=== PATIENT | male | born 1945 | race Caucasian/White ===

== ENCOUNTER → 2020-05-19 17:47 | Outpatient (CLI) | payer MEDICARE, SELFPAY ==
[2020-05-19 18:08] LABS: Basophils % 0.4 % (0.1-2.0); Eosinophils # 0.1 K/mm3 (0.0-0.4); Eosinophils % 2.1 % (0.1-12.0); Hemoglobin 16.2 g/dL (14.1-18.0); Lymphocytes # 1.7 K/mm3 (0.7-4.5); Lymphocytes % 25.1 % (10-50); Mean Corpuscular HGB Conc 33.8 g/dL (31.8-35.4); Mean Corpuscular Hemoglobin 28.9 pg (27.0-31.2); Mean Corpuscular Volume 85.7 fl (80-94); Mean Platelet Volume 7.5 fl (7.4-10.4); Monocytes # 0.5 K/mm3 (0.1-1.0); Monocytes % 8.2 % (1.7-9.3); Neutrophils # 4.3 K/mm3 (1.8-7.8); Neutrophils % 64.3 % (37.0-80.0); Platelet Count 274 K/mm3 (142-424); Red Cell Distribution Width 14.4 % (11.5-17.5); White Blood Count 6.7 K/mm3 (4.8-10.8)
[2020-05-19 18:14] LABS: Alanine Aminotransferase 45 U/L (12-78); Albumin Level 4.6 g/dl (3.5-5.0); Albumin/Globulin Ratio 1.5 (1.1-1.8); Alkaline Phosphatase 119 U/L (38-126); Anion Gap 15.3 mEq/L (5-15); Aspartate Amino Transferase 43 U/L (17-59); Bilirubin,Total 0.5 mg/dl (0.2-1.3); Blood Urea Nitrogen 19 mg/dl (9-20); Carbon Dioxide 28 mmol/L (22.0-30.0); Chloride 99 mmol/L (98-107); Estimated Glomerular Filt Rate 54 ml/min (>60); GFR (African American) 66 ML/MIN (>60); Glucose 256 mg/dl (74-100); Potassium 4.3 mmoL/L (3.5-5.1); Sodium 138 mmol/L (136-145); Total Protein,Serum 7.6 g/dl (6.3-8.2)
[2020-05-19 18:32] LABS: 25-OH Vitamin D, Total 53.2 ng/mL (30-100); Free T4 (Free Thyroxine) 1.66 ng/dl (0.78-2.19)
[2020-05-19 18:44] LABS: Erythrocyte Sedimentation Rate 10 mm/hr (0-20)
[2020-05-19 18:45] LABS: Thyroid Stimulating Hormone 3.31 uIU/mL (0.465-4.68)
== END ==
PROVIDERS: Visit Provider Emergency Medicine
DX: E66.9 Obesity, unspecified (principal); I10 Essential (primary) hypertension; E55.9 Vitamin D deficiency, unspecified; R42 Dizziness and giddiness
CPT/HCPCS: 80053; 80162; 82306; 84439; 84443; 85025; 85651

== ENCOUNTER → 2020-05-25 15:26 | Outpatient (CLI) | payer MEDICARE, SELFPAY ==
[2020-05-25 18:02] LABS: Hemoglobin A1C 7.5 % (4.0-6.0)
== END ==
PROVIDERS: Visit Provider Emergency Medicine
DX: I21.9 Acute myocardial infarction, unspecified (principal); E11.9 Type 2 diabetes mellitus without complications
CPT/HCPCS: 83036

== ENCOUNTER → 2020-06-01 13:02 | Outpatient (CLI) | payer MEDICARE, SELFPAY ==
[2020-06-01 14:45] LABS: Basophils % 0.6 % (0.1-2.0); Eosinophils # 0.3 K/mm3 (0.0-0.4); Eosinophils % 4.1 % (0.1-12.0); Hematocrit 47.6 % (42.0-52.0); Hemoglobin 15.6 g/dL (14.1-18.0); Lymphocytes # 1.7 K/mm3 (0.7-4.5); Lymphocytes % 28.3 % (10-50); Mean Corpuscular HGB Conc 32.9 g/dL (31.8-35.4); Mean Corpuscular Hemoglobin 28.8 pg (27.0-31.2); Mean Corpuscular Volume 87.6 fl (80-94); Mean Platelet Volume 7.7 fl (7.4-10.4); Monocytes # 0.5 K/mm3 (0.1-1.0); Monocytes % 7.9 % (1.7-9.3); Neutrophils # 3.6 K/mm3 (1.8-7.8); Neutrophils % 59.1 % (37.0-80.0); Platelet Count 268 K/mm3 (142-424); Red Blood Count 5.43 M/mm3 (4.60-6.20); Red Cell Distribution Width 14.5 % (11.5-17.5); White Blood Count 6.1 K/mm3 (4.8-10.8)
[2020-06-01 15:22] LABS: Chloride 100 mmol/L (98-107); Potassium 4.2 mmoL/L (3.5-5.1); Sodium 136 mmol/L (136-145)
[2020-06-01 15:25] LABS: Anion Gap 14.2 mEq/L (5-15); Blood Urea Nitrogen 18 mg/dl (9-20); Calcium 9.7 mg/dl (8.4-10.2); Carbon Dioxide 26 mmol/L (22.0-30.0); Estimated Glomerular Filt Rate 50 ml/min (>60); GFR (African American) 60 ML/MIN (>60); Glucose 318 mg/dl (74-100)
[2020-06-01 16:26] LABS: Coronavirus 19 IgG Antibody Negative (Negative); Coronavirus 19 IgM Antibody Negative (Negative)
== END ==
PROVIDERS: Visit Provider Internal Medicine
DX: Z01.818 Encounter for other preprocedural examination (principal); I25.10 Atherosclerotic heart disease of native coronary artery without angina pectoris; R06.02 Shortness of breath
CPT/HCPCS: 36415; 80048; 85025; 86328

== ENCOUNTER 2020-06-03 08:41 | Day surgery (SDC) | payer MEDICARE, SELFPAY ==
[2020-06-03] VITALS (11 sets, daily range): BP systolic 113–228; BP diastolic 49–86; PULSE 61–66; RESP 20; TEMP 36.6; O2SAT 94–98; BMI 28.6
--- NOTE | 2020-06-03 07:14 | IR_ITS ---
APPROVED REPORT Patient Location: Outpatient PROCEDURES Left heart catheterization Left ventriculogram Selective coronary angiogram Selective engagement of the left internal mammary artery Selective engagement of the saphenous vein skip graft involving the first and second obtuse marginal artery off the circumflex artery Selective engagement of the saphenous vein graft to the right coronary Bilateral selective renal angiography Metal stent deployment to the left renal artery INDICATION Coronary disease, History of coronary bypass surgery, Typical angina pectoris, Chronic renal failure creatinine 1.4, Renovascular hypertension, Renal artery stenosis Informed consent was obtained prior to the procedure. COMPLICATIONS NONE Estimated Blood Loss: LESS THAN 10 ML TECHNIQUE One percent lidocaine used to anesthetize the right groin. The right femoral artery was accessed via the Seldinger technique and a 5 Maltese sheath was placed in the right femoral artery. A JL 4, JR4 catheter were used to perform left heart catheterization, left ventriculogram selective coronary angiography as well as selective engagement of the 2 vein grafts and the left internal mammary artery. Because of patient's hypertension renal insufficiency and diffuse atherosclerosis it was decided to proceed with bilateral selective renal angiography. The JR4 catheter was used to intubate each renal artery and perform angiography. Following this therapeutic heparin was administered and the 5 Maltese sheath was exchanged for a 7 Maltese sheath. A short SCHILLING guide catheter was used to intubate the left renal artery and a BMW wire was placed distally. A 6 mm x 12 mm Herculink stent was deployed at 20 gerard reducing the stenosis. An additional 7 mm x 20 mm balloon was then deployed at 16 gerard to post dilate. At the end of the procedure excellent angiographic results were obtained with wide patency of the ostial renal artery. At the end of the procedure the apparatus was removed the groin was reprepped gloves were changed sheath was removed good hemostasis was achieved using Perclose device patient was transferred to the postop holding area in stable condition ANGIOGRAPHIC RESULTS The left main artery Has an ostial 90% stenosis in the distal 50% calcified stenosis The left anterior descending artery Is subtotally occluded proximally with long complex 99% stenosis. Competitive flow is identified from the left internal mammary artery The circumflex artery Is ostially occluded The right coronary artery Is proximally subtotally occluded The CASAREZ ventriculogram reveals Normal 65% The left ventricular end-diastolic pressure 20 mmHg The left internal mammary artery to the LAD is widely patent The saphenous vein graft to the first and second obtuse marginal artery is widely patent. Between the first and second obtuse marginal artery the saphenous vein graft has a 20 to 30% stenosis Saphenous vein graft to the right coronary is ostially occluded The right renal artery singular and has an ostial proximal 20 to 30% stenosis The left renal artery singular and has an ostial 90% stenosis. There is severe dampening upon engagement of the JR4 4 Maltese catheter as identified on recorded tracing IMPRESSION Coronary disease as described above Normal ejection fraction Elevated LVEDP consistent with hypertensive heart disease Severe left renal artery stenosis Successful stenting of left renal artery severe disease reduced to 0% with 1 bare-metal stent PLAN 1. Aspirin and Plavix for 30 days 2. Medical management for coronary disease 3. Risk factor modification 4. Demise antianginal medications Electronically signed by : Clyde Pepper, 06/03/2020
--- NOTE | 2020-06-03 08:51 | CA_ITS ---
APPROVED REPORT EXAM: Comprehensive 2D, Doppler, and color-flow Echocardiogram Photonics Engineer: Jennifer Novak RT(R) Ht: 6 ft 0 in Wt: 211lbs BSA: 2.18 BP: 149/66 mmHg Indications: ABN GXT, SOA, CAD, CP, CABG 2005, HTN, Hyperlipidemia, murmur 2D Dimensions LVOT 2.17 cm (M/F) 1.5-2.5 M-Mode Dimensions LA Diam 2.80 cm (1.9-4.0) Ao Diam 2.62 cm (2.0-3.7) LV Diastology E Decel Time 223.00 (160-240 msec) E/A Ratio 0.7 MED E' 6.80 (< 7 cm/sec) E'/MED E' Ratio 10.41 (>14) LAT E' 10.10 (<10 cm/sec) E/LAT E' Ratio 7.01 (>14) Mitral Valve MV E Max Jimmy. 71.00 (40-130 cm/s) MV A Velocity 104.00 (40-130 cm/s) E/A Ratio 0.68 MV Decel. Time 223.00 (160-240 ms) MV PHT 65.00 ms Left Ventricle Left atrium is mildly enlarged, left ventricle is normal size, mild concentric left ventricular hypertrophy, visually estimated ejection fraction 55% with no regional wall motion abnormality, grade 1 diastolic dysfunction seen without tissue Doppler evidence of raise left atrial pressure. Right Ventricle Right atrium and right ventricle are mildly enlarged with normal contractility. Aortic Valve Aortic valve is thickened and calcified leaflet chordae display good mobility, there is no aortic stenosis or aortic insufficiency. Mitral Valve Mitral valve leaflets are minimally thickened, there is mild mitral regurgitation. Tricuspid Valve Tricuspid valve is grossly normal, there is mild tricuspid regurgitation, tricuspid regurgitation jet velocity is inadequate for calculation of the right ventricular systolic pressure. Pulmonic Valve Pulmonic valve is poorly visualized. Great Vessels Aortic root is normal size. Pericardium No significant pericardial effusion noted. Conclusion 1. Mildly enlarged left atrium, normal left ventricular size, mild concentric left ventricular hypertrophy, visually estimated ejection fraction 55% with no regional wall motion abnormality, grade 1 diastolic dysfunction seen without tissue Doppler evidence of raise left atrial pressure. 2. Mildly enlarged right ventricle with normal contractility. 3. Mild mitral and tricuspid regurgitation. 4. No significant pericardial effusion noted. Electronically signed by : Jerardo Miller, 06/04/2020 15:01:54
--- NOTE | 2020-06-03 08:51 | CA_ITS ---
APPROVED REPORT Nurses Supervisor: RAFA Laterality: Bilateral Study Quality: Adequate Indications: CAROTID BRUIT Risk Factors Hypertension: Hyperlipidemia CAD, Doppler Spectral Velocity Analysis ECA (R) 131.50/11.80 cm/s ECA (L) 140.60/16.40 cm/s dICA (R) 75.90/19.20 cm/s dICA (L) 126.20/24.10 cm/s Rhona (R) 79.10/21.40 cm/s Rhona (L) 113.70/24.10 cm/s pICA (R) 71.60/16.00 cm/s pICA (L) 96.30/18.30 cm/s dCCA (R) 111.20/17.10 cm/s dCCA (L) 120.00/18.00 cm/s pCCA (R) 114.40/11.80 cm/s pCCA (L) 104.50/12.00 cm/s Vert (R) 39.80/4.80 cm/s Vert (L) 53.90/13.50 cm/s ICA/CCA 0.70 ICA/CCA 1.10 Findings Duplex evaluation demonstrates stenosis of the right proximal internal carotid artery <20% with PSV <140 cm/sec, EDV <100 cm/sec, and IC/CC Ratio <4.0. Duplex evaluation demonstrates stenosis of the left proximal internal carotid artery <20% with PSV <140 cm/sec, EDV <100 cm/sec, and IC/CC Ratio <4.0. Electronically signed by : Chance Andrews MD 06/03/2020 16:16:56
[2020-06-03 12:54] LABS: CATHL Activated Clotting Time 242 SEC (74-125)
--- NOTE | 2020-06-03 14:06 | HMH.PHACLD ---
Sarwat Griffin has received discharge medication counseling on the following medications: PATIENT ALREADY TAKING LISINOPRIL 2.5 MG DAILY AND METOPROLOL SUCCINATE 100 MG DAILY. MD CHANGED ASPIRIN FROM 325 MG DAILY TO 81 MG DAILY. MD ALSO ADDING PLAVIX 75 MG DAILY. DISCUSSED MED CHANGES WITH PATIENT AND SPOUSE.
== END 2020-06-03 14:10 | disposition home or self-care (01) ==
LOC: CATHLAB 08:44
PROVIDERS: PCP Emergency Medicine; Visit Provider Internal Medicine
DX: I70.1 Atherosclerosis of renal artery (principal); I77.1 Stricture of artery; I25.118 Atherosclerotic heart disease of native coronary artery with other forms of angina pectoris; E78.5 Hyperlipidemia, unspecified; I10 Essential (primary) hypertension; R01.1 Cardiac murmur, unspecified; R06.00 Dyspnea, unspecified; R09.89 Other specified symptoms and signs involving the circulatory and respiratory systems; Z95.1 Presence of aortocoronary bypass graft; E03.9 Hypothyroidism, unspecified
CPT/HCPCS: 37236; 85347; 93306; 93459; 93880; 99152; 99153; C1725; C1760; C1769; C1876; C1894; J1644; Q9967

== ENCOUNTER → 2020-06-04 09:47 | Outpatient (CLI) | payer MEDICARE, SELFPAY ==
[2020-06-04 12:01] VITALS: BMI 28.6
== END ==
PROVIDERS: PCP Emergency Medicine; Visit Provider Emergency Medicine
DX: Z71.3 Dietary counseling and surveillance (principal); E11.9 Type 2 diabetes mellitus without complications
CPT/HCPCS: 97802

== ENCOUNTER → 2020-06-08 15:05 | Outpatient (CLI) | payer MEDICARE, SELFPAY ==
[2020-06-08 16:09] LABS: Basophils % 0.5 % (0.1-2.0); Eosinophils # 0.2 K/mm3 (0.0-0.4); Eosinophils % 3.2 % (0.1-12.0); Hematocrit 46.9 % (42.0-52.0); Hemoglobin 15.8 g/dL (14.1-18.0); Lymphocytes # 1.5 K/mm3 (0.7-4.5); Lymphocytes % 24.2 % (10-50); Mean Corpuscular HGB Conc 33.6 g/dL (31.8-35.4); Mean Corpuscular Hemoglobin 29.1 pg (27.0-31.2); Mean Corpuscular Volume 86.6 fl (80-94); Monocytes # 0.6 K/mm3 (0.1-1.0); Monocytes % 9.3 % (1.7-9.3); Neutrophils # 3.7 K/mm3 (1.8-7.8); Neutrophils % 62.8 % (37.0-80.0); Platelet Count 279 K/mm3 (142-424); Red Blood Count 5.41 M/mm3 (4.60-6.20); Red Cell Distribution Width 14.2 % (11.5-17.5)
[2020-06-08 17:08] LABS: Anion Gap 17.5 mEq/L (5-15); Blood Urea Nitrogen 21 mg/dl (9-20); Calcium 10.2 mg/dl (8.4-10.2); Carbon Dioxide 26 mmol/L (22.0-30.0); Chloride 101 mmol/L (98-107); Estimated Glomerular Filt Rate 54 ml/min (>60); GFR (African American) 66 ML/MIN (>60); Glucose 191 mg/dl (74-100); Potassium 4.5 mmoL/L (3.5-5.1); Sodium 140 mmol/L (136-145)
== END ==
PROVIDERS: Visit Provider Internal Medicine
DX: I25.10 Atherosclerotic heart disease of native coronary artery without angina pectoris (principal); Z95.1 Presence of aortocoronary bypass graft
CPT/HCPCS: 36415; 80048; 85025

== ENCOUNTER → 2020-06-16 11:03 | Outpatient (CLI) | payer MEDICARE, SELFPAY ==
[2020-06-16 13:16] LABS: Alanine Aminotransferase 43 U/L (12-78); Albumin Level 4.8 g/dl (3.5-5.0); Alkaline Phosphatase 83 U/L (38-126); Anion Gap 18.5 mEq/L (5-15); Aspartate Amino Transferase 37 U/L (17-59); Bilirubin,Direct 0.1 mg/dl (0.0-0.4); Bilirubin,Indirect 0.7 mg/dL (0.0-0.9); Bilirubin,Total 0.8 mg/dl (0.2-1.3); Bilirubin,Unconjugated 0.6 mg/dL (0.0-1.1); Blood Urea Nitrogen 25 mg/dl (9-20); Calcium 10.5 mg/dl (8.4-10.2); Carbon Dioxide 24 mmol/L (22.0-30.0); Chloride 103 mmol/L (98-107); Chol/HDL Ratio 5.6 (1-3.5); Cholesterol 211 mg/dl (140-200); Estimated Glomerular Filt Rate 40 ml/min (>60); GFR (African American) 48 ML/MIN (>60); Glucose 151 mg/dl (74-100); HDL Cholesterol 38 mg/dl (40-60); Potassium 4.5 mmoL/L (3.5-5.1); Triglycerides 182 mg/dl (30-150); VLDL Cholesterol 36 mg/dL (0-40)
[2020-06-16 13:27] LABS: Direct LDL Cholesterol 133.92 mg/dL (100-129)
[2020-06-16 17:01] LABS: Sodium 141 mmol/L (136-145)
== END ==
PROVIDERS: Visit Provider Nurse Practitioner Family
DX: E11.69 Type 2 diabetes mellitus with other specified complication (principal); E78.2 Mixed hyperlipidemia; I10 Essential (primary) hypertension; I25.118 Atherosclerotic heart disease of native coronary artery with other forms of angina pectoris; R06.02 Shortness of breath; R94.30 Abnormal result of cardiovascular function study, unspecified; Z95.1 Presence of aortocoronary bypass graft; E66.9 Obesity, unspecified; Z79.84 Long term (current) use of oral hypoglycemic drugs
CPT/HCPCS: 36415; 80048; 80061; 80076

== ENCOUNTER 2020-07-13 16:25 | Emergency (ER) | payer MEDICARE, SELFPAY ==
[2020-07-13] VITALS (8 sets, daily range): BP systolic 127–148; BP diastolic 56–76; PULSE 58–70; RESP 12–20; TEMP 36.6–36.8; O2SAT 96–98; BMI 27.9
--- NOTE | 2020-07-13 16:31 | CT_ITS ---
Procedure: CT ANGIO NECK CLINICAL HISTORY: vertigo COMPARISON: CT CT ANGIO HEAD from 07/13/2020 TECHNIQUE: IV Contrast: 100ml Isovue 370 Axial images obtained with sagittal and coronal reformats. All CT scans at the facility use one or more dose reduction, viz: automated exposure control, ma/kV adjustment per patient size (including targeted exams where dose is matched to indication, i.e. head), or iterative reconstruction technique. FINDINGS: CTA neck: Right common carotid: Mild mixed plaque in mid distal segments with no stenosis. Right internal carotid artery mild intimal thickening with [id number] mixed calcific plaque in the right carotid bulb with 20 percent stenosis in the proximal aspect no significant stenosis or ulceration. Moderate tortuosity with kinking in the upper cervical portion Left common carotid [id number] mixed calcific plaque in the mid to distal left CCA without significant stenosis. Left internal carotid: Interval thickening with mild to moderate mixed plaque in the left bulb and tortuosity. 20 percent stenosis. No significant stenotic lesion. Left vertebral: Calcific plaque proximally with 30 percent narrowing at the ostium. Calcific plaque is present in the distal left vertebral proximal to the basilar with no significant stenosis or dissection. Right vertebral: Short segment contour irregularity and stenosis in the distal right vertebral artery about 1 cm past the PICA origin with stenosis of 60-70 percent which could be due to atherosclerotic stenosis, normal variant fenestrated segment or possibly short segment dissection. No occlusion. CT angio head: Right ICA: Moderate calcific plaque is present in the cavernous segment of the right ICA with moderate stenosis of 50 percent. Left ICA: Moderate calcific plaque in the cavernous segment of the left ICA with 50 percent or less stenosis. No aneurysm AVM or major branch intracranial occlusion. There is some irregularity of the posterior cerebral arteries which may be due to atherosclerosis.. Basilar artery: Shallow 3 x 1.5 mm infundibulum at the left AICA origin No enhancing lesions. No midline shift or mass effect. IMPRESSION: 1. No large vessel occlusion. 2. Short segment contour irregularity and stenosis in the distal right vertebral artery at 60-70 percent which could be due to short segment atherosclerotic stenosis versus fenestrated segment versus short segment dissection. No occlusion 3. Moderate stenosis of the right and left ICA cavernous segment at 50 percent 4. Atherosclerotic changes of the posterior cerebral arteries without occlusion Dictated by: Chance Andrews MD 07/14/2020 11:05 Chance Andrews MD in [place] 07/14/2020 11:05
--- NOTE | 2020-07-13 16:31 | CT_ITS ---
PROCEDURE: CT HEAD/BRAIN WO CON CLINICAL INDICATION: vertigo Dizziness COMPARISON: No exams were available for comparison TECHNIQUE: Axial images obtained. All CT scans at the facility use one or more dose reduction, viz: automated exposure control, ma/kV adjustment per patient size (including targeted exams where dose is matched to indication, i.e. head), or iterative reconstruction technique. FINDINGS: No midline shift, mass effect, intracranial hemorrhage, hydrocephalus, or extra-axial fluid collection is evident. There is generalized atrophy with hypoattenuation of the periventricular white matter consistent with microangiopathic changes. The calvarium has an unremarkable appearance. No mastoid effusion. No sinus air-fluid level. IMPRESSION: No acute intracranial finding Dictated by: Chance Andrews MD 07/14/2020 05:07 Chance Andrews MD in [facility] 07/14/2020 05:08
[2020-07-13 17:17] LABS: Basophils % 0.5 % (0.1-2.0); Eosinophils # 0.1 K/mm3 (0.0-0.4); Eosinophils % 1.7 % (0.1-12.0); Hematocrit 46.2 % (42.0-52.0); Lymphocytes # 1.7 K/mm3 (0.7-4.5); Lymphocytes % 26.5 % (10-50); Mean Corpuscular HGB Conc 34.6 g/dL (31.8-35.4); Mean Corpuscular Hemoglobin 29.3 pg (27.0-31.2); Mean Corpuscular Volume 84.7 fl (80-94); Mean Platelet Volume 7.8 fl (7.4-10.4); Monocytes # 0.5 K/mm3 (0.1-1.0); Monocytes % 7.2 % (1.7-9.3); Neutrophils # 4.1 K/mm3 (1.8-7.8); Neutrophils % 64.1 % (37.0-80.0); Platelet Count 290 K/mm3 (142-424); Red Blood Count 5.46 M/mm3 (4.60-6.20); Red Cell Distribution Width 14.7 % (11.5-17.5); White Blood Count 6.4 K/mm3 (4.8-10.8)
[2020-07-13 17:21] LABS: Chloride 101 mmol/L (98-107); Potassium 4.6 mmoL/L (3.5-5.1); Sodium 139 mmol/L (136-145)
[2020-07-13 17:24] LABS: Anion Gap 16.6 mEq/L (5-15); Blood Urea Nitrogen 30 mg/dl (9-20); Carbon Dioxide 26 mmol/L (22.0-30.0); Creatinine Clearance Estimated 55 mL/min (50-200); Estimated Glomerular Filt Rate 43 ml/min (>60); GFR (African American) 52 ML/MIN (>60)
[2020-07-13 17:25] LABS: Calcium 10.3 mg/dl (8.4-10.2); Glucose 145 mg/dl (74-100)
[2020-07-13 17:50] LABS: Activated Partial Thrombo Time 24.8 seconds (23.6-34.0); INR 1.05 (0.9-1.1); Prothrombin Time 11.6 seconds (9.4-11.8)
--- NOTE | 2020-07-13 18:32 | HMH.EDGENADL ---
ED Disposition Clinical Impression: Vertigo Disposition: Home, Self-Care Condition on Discharge: Good Instructions: Vertigo Additional Instructions: Follow up with Dr. Hdez (Neurology) and Ear Nose and Throat (call [phone] to make an appointment). Referrals: Hemant Francis MD [Primary Care Provider] - Susie Hdez MD [Staff Physician] - - Critical Care Critical Care Time: No Attestation: On 07/13/20, the high probability of a clinically significant, sudden or life threatening deterioration of the following system(s) required my full and direct attention, intervention and personal management. The time I documented below is in addition to time spent performing reported procedures but includes the following listed in this critical care notation. Medical Decision Making - Ezequiel Inquiry Pt receiving controlled substance: No Vital Signs: 07/13/20 16:28 07/13/20 17:25 07/13/20 17:54 Temperature 98.3 F Temperature Source Oral Pulse Rate [Left Radial] 68 60 61 Respiratory Rate 12 20 16 Blood Pressure [Right Arm] 138/76 143/72 H 127/63 Blood Pressure Mean [Right Arm] 96 95 84 Blood Pressure Source [Right Arm] Automatic Cuff Automatic Cuff Automatic Cuff Blood Pressure Position [Right Arm] Sitting Sitting Sitting 02 Sat by Pulse Oximetry 97 97 96 Oxygen Delivery Method Room Air Room Air 07/13/20 18:37 07/13/20 19:00 07/13/20 19:30 Temperature Temperature Source Pulse Rate [Left Radial] 66 60 58 L Respiratory Rate 20 13 14 Blood Pressure [Right Arm] 127/63 134/57 L 132/56 L Blood Pressure Mean [Right Arm] 84 82 81 Blood Pressure Source [Right Arm] Automatic Cuff Automatic Cuff Automatic Cuff Blood Pressure Position [Right Arm] Sitting Supine Supine 02 Sat by Pulse Oximetry 97 96 96 Oxygen Delivery Method 07/13/20 19:57 Temperature Temperature Source Pulse Rate [Left Radial] 60 Respiratory Rate 13 Blood Pressure [Right Arm] 148/65 H Blood Pressure Mean [Right Arm] 92 Blood Pressure Source [Right Arm] Automatic Cuff Blood Pressure Position [Right Arm] Supine 02 Sat by Pulse Oximetry 98 Oxygen Delivery Method - Lab Data Lab Results 07/13/20 17:05: WBC 6.4, RBC 5.46, Hgb 16.0, Hct 46.2, MCV 84.7, MCH 29.3, MCHC 34.6, RDW 14.7, Plt Count 290, MPV 7.8, Neut % (Auto) 64.1, Lymph % (Auto) 26.5, [place] % (Auto) 7.2, Eos % (Auto) 1.7, Baso % (Auto) 0.5, Neut # (Auto) 4.1, Lymph # (Auto) 1.7, [place] # (Auto) 0.5, Eos # (Auto) 0.1, Baso # (Auto) 0.0 07/13/20 17:05: PT 11.6, INR 1.05, APTT 24.8 07/13/20 17:05: Sodium 139, Potassium 4.6, Chloride 101, Carbon Dioxide 26, Anion Gap 16.6 H, BUN 30 H, Creatinine 1.60 H, Estimated Creat Clear 55, Estimated GFR 43 L, Est GFR ( Amer) 52 L, Glucose 145 H, Calcium 10.3 H Result diagrams: 07/13/20 17:05 07/13/20 17:05 Orders (Tests/Meds): ED MEDICATIONS Generic Name Dose Route Start Last Admin Trade Name Freq PRN Reason Stop Dose Admin Lactated Ringer's 1,000 mls @ 999 mls/hr 07/13/20 18:15 07/13/20 18:42 Lactated Ringer's 1000 Ml Bag IV 07/13/20 19:15 999 mls/hr .Q1H1M DAMON Administration Discontinued Medications Generic Name Dose Route Start Last Admin Trade Name Freq PRN Reason Stop Dose Admin Iopamidol 100 ml 07/13/20 18:36 07/13/20 18:37 Iopamidol-370 (76%);100ml Bottle IV 07/13/20 18:37 100 ml ONCE ONE Administration Ondansetron HCl 4 mg 07/13/20 16:47 07/13/20 17:05 Ondansetron 4mg/2ml Vial IV 07/13/20 16:48 4 mg ONCE ONE Administration Sodium Chloride 50 ml 07/13/20 18:36 07/13/20 18:37 0.9 % Sodium Chloride 50 Ml Vial IV 07/13/20 18:37 50 ml ONCE ONE Administration Sodium Chloride 10 ml 07/13/20 18:36 07/13/20 18:37 Sodium Chloride 0.9% 10ml Syr (Rad Only) IV 07/13/20 18:37 10 ml ONCE ONE Administration ORDERS Category Date Time Status CT angio head Stat Cat Scan 07/13/20 16:[address] angio neck Stat Cat Scan 07/13/20 16:[address] head/br
--- NOTE | 2020-07-13 20:01 | PC.NURSE ---
on phone with Cesar
== END 2020-07-13 20:39 | disposition home or self-care (01) ==
PROVIDERS: Emergency Provider Emergency Medicine; PCP Emergency Medicine
DX: R42 Dizziness and giddiness (principal); E11.9 Type 2 diabetes mellitus without complications; I10 Essential (primary) hypertension; I25.2 Old myocardial infarction; I25.10 Atherosclerotic heart disease of native coronary artery without angina pectoris; Z87.442 Personal history of urinary calculi; Z79.899 Other long term (current) drug therapy
CPT/HCPCS: 70450; 70496; 70498; 80048; 85025; 85610; 85730; 96365; 96375; 99284; J2405; Q9967

== ENCOUNTER 2020-08-03 08:45 | Outpatient (RCR) | payer MEDICARE, SELFPAY | END 2020-08-03 08:50 | disposition home or self-care (01) | LOC: PT 08:45 | PROVIDERS: PCP Emergency Medicine; Visit Provider Specialist | DX: R42 Dizziness and giddiness (principal) ==

== ENCOUNTER 2020-09-06 19:42 | Emergency (ER) | payer MEDICARE, SELFPAY ==
[2020-09-06 19:51] VITALS: BP 147/64; PULSE 88; RESP 18; TEMP 36.6; O2SAT 97; BMI 27.1
--- NOTE | 2020-09-06 20:15 | HMH.EDGENADL ---
ED Disposition Clinical Impression: Acute hemorrhoid Disposition: Home, Self-Care Condition on Discharge: Good Instructions: DI for Hemorrhoids Additional Instructions: ice and call dr cerna in am Referrals: Hemant Francis MD [Primary Care Provider] - Louie Cerna MD [Staff Physician] - - Critical Care Critical Care Time: No Attestation: On 09/06/20, the high probability of a clinically significant, sudden or life threatening deterioration of the following system(s) required my full and direct attention, intervention and personal management. The time I documented below is in addition to time spent performing reported procedures but includes the following listed in this critical care notation. Medical Decision Making - Medical Records Medical records reviewed: Yes: I reviewed the patient's medical records. - Ezequiel Inquiry Pt receiving controlled substance: No Vital Signs: 09/06/20 19:51 Temperature 97.9 F Temperature Source Oral Pulse Rate [Left] 88 Respiratory Rate 18 Blood Pressure [Left Arm] 147/64 H Blood Pressure Mean [Left Arm] 91 Blood Pressure Source [Left Arm] Automatic Cuff Blood Pressure Position [Left Arm] Sitting 02 Sat by Pulse Oximetry 97 Oxygen Delivery Method Room Air - Lab Data Lab results reviewed: Yes: I reviewed the patient's lab results. Orders (Tests/Meds): ED MEDICATIONS Discontinued Medications Generic Name Dose Route Start Last Admin Trade Name Freq PRN Reason Stop Dose Admin Ondansetron HCl 4 mg 09/06/20 20:01 09/06/20 20:12 Ondansetron 4mg Odt SL 09/06/20 20:02 4 mg ONCE ONE Administration - Physician Consults Physician Consulted: leah Reason -: Pt condition General Adult HPI - General Chief complaint: PAIN Stated complaint: hemorrhoids Time Seen by Provider: 09/06/20 20:00 Mode of Arrival: Ambulatory Source of Information: Patient, Spouse, Medical Record Limitations: No Limitations Description of Symptoms (Recalled from ER Triage Doc. by RN): Pt states he has Hemrrhoids for 3 days, has been using Hemrrhoid cream with no relief. - History of Present Illness HPI narrative: painful hemorroids over the last 3 days - no bleeding Onset (ago): day(s) Severity: moderate Associated symptoms: denies other symptoms Treatments prior to arrival: none - Related Data Home Medications Medication Instructions Recorded Confirmed albuterol sulfate 90 mcg/actuation 2 puff INHALATION Q6H PRN 05/19/20 08/27/20 aerosol inhaler finasteride 5 mg tablet 5 mg PO DAILY 05/19/20 08/27/20 levocetirizine 5 mg tablet 5 mg PO HS PRN 05/19/20 08/27/20 levothyroxine 25 mcg tablet 25 mcg PO DAILY 05/19/20 08/27/20 magnesium oxide 400 mg PO DAILY 05/19/20 08/27/20 multivitamin 1 tab PO DAILY 05/19/20 08/27/20 naproxen 500 mg tablet,delayed 500 mg PO BID 05/19/20 08/27/20 release nitroglycerin 0.4 mg sublingual 0.4 mg SUBLINGUAL Q5M PRN 05/19/20 08/27/20 tablet saw palmetto 500 mg capsule 900 mg PO BID cap 05/19/20 08/27/20 sennosides 8.6 mg tablet 34.4 mg PO HS tab 05/19/20 08/27/20 aspirin 81 mg tablet,delayed 81 mg PO DAILY 06/09/20 08/27/20 release clopidogrel 75 mg tablet 75 mg PO DAILY 08/24/20 08/27/20 Previous Rx's Medication Instructions Recorded metoprolol succinate 100 mg 100 mg PO DAILY #90 tab 05/25/20 tablet,extended release 24 hr lancets 28 gauge See Rx Instructions .ROUTE 05/26/20 .MEDSUPPLY #100 each spironolactone 25 mg tablet 25 mg PO DAILY #30 tab 06/09/20 amlodipine 5 mg tablet 5 mg PO BID #180 tab 06/29/20 rosuvastatin 5 mg tablet 5 mg PO DAILY #30 tab 07/07/20 ondansetron HCl 4 mg tablet 4 mg PO Q8H PRN #30 tab 07/14/20 promethazine 25 mg tablet 25 mg PO BID PRN #30 tab 07/14/20 digoxin 250 mcg (0.25 mg) tablet 250 mcg PO DAILY #90 tab 07/20/20 escitalopram oxalate 20 mg tablet 20 mg PO DAILY #90 tab 07/20/20 ofloxacin 0.3 % ear drops 5 drp OTIC DAILY 7 Days #10 ml 08/13/20 diazepam 2 mg tablet 2 m
[2020-09-06 20:46] VITALS: BP 158/60; PULSE 70; RESP 16; TEMP 36.6; O2SAT 96
== END 2020-09-06 20:47 | disposition home or self-care (01) ==
PROVIDERS: Emergency Provider Emergency Medicine; PCP Emergency Medicine
DX: K64.9 Unspecified hemorrhoids (principal); I10 Essential (primary) hypertension; E11.9 Type 2 diabetes mellitus without complications; I25.10 Atherosclerotic heart disease of native coronary artery without angina pectoris; I25.2 Old myocardial infarction; E78.5 Hyperlipidemia, unspecified; F41.8 Other specified anxiety disorders; Z79.899 Other long term (current) drug therapy
CPT/HCPCS: 99281

== ENCOUNTER → 2020-10-05 12:00 | Outpatient (CLI) | payer MEDICARE, SELFPAY ==
[2020-10-05 13:51] LABS: Coronavirus 19 IgG Antibody Negative (Negative); Coronavirus 19 IgM Antibody Negative (Negative)
== END ==
PROVIDERS: Visit Provider Ophthalmology
DX: Z01.812 Encounter for preprocedural laboratory examination (principal)
CPT/HCPCS: 36415; 86328

== ENCOUNTER 2020-10-06 07:43 | Day surgery (SDC) | payer MEDICARE, SELFPAY ==
[2020-09-29 11:32] VITALS: BMI 27.1
[2020-10-06 09:09] VITALS: BP 138/73; PULSE 70; RESP 18; TEMP 36.4; O2SAT 99
[2020-10-06 09:24] LABS: POC Glucose,Bedside 118 (70-110)
[2020-10-06 10:11] VITALS: BP 141/66; PULSE 57; RESP 16; O2SAT 100
[2020-10-06 10:16] VITALS: BP 140/62; PULSE 57; RESP 16; O2SAT 100
[2020-10-06 10:21] VITALS: BP 139/60; PULSE 55; RESP 16; O2SAT 100
[2020-10-06 10:26] VITALS: BP 142/64; PULSE 56; RESP 16; O2SAT 100
[2020-10-06 10:37] VITALS: BP 131/58; PULSE 58; RESP 16; TEMP 36.3; O2SAT 98
== END 2020-10-06 10:37 | disposition home or self-care (01) ==
LOC: OR 07:45
PROVIDERS: PCP Emergency Medicine; Visit Provider Ophthalmology
DX: H25.813 Combined forms of age-related cataract, bilateral (principal); H57.03 Miosis; H53.149 Visual discomfort, unspecified; E11.9 Type 2 diabetes mellitus without complications; I10 Essential (primary) hypertension; E78.5 Hyperlipidemia, unspecified; F32.9 Major depressive disorder, single episode, unspecified; I25.10 Atherosclerotic heart disease of native coronary artery without angina pectoris; F41.9 Anxiety disorder, unspecified; M19.90 Unspecified osteoarthritis, unspecified site; Z82.3 Family history of stroke; Z83.3 Family history of diabetes mellitus; Z82.49 Family history of ischemic heart disease and other diseases of the circulatory system
CPT/HCPCS: 66982; 82962; V2632

== ENCOUNTER → 2020-10-19 12:07 | Outpatient (CLI) | payer MEDICARE, SELFPAY ==
[2020-10-19 13:29] LABS: Coronavirus 19 IgG Antibody Positive (Negative); Coronavirus 19 IgM Antibody Negative (Negative)
== END ==
PROVIDERS: Visit Provider Ophthalmology
DX: Z01.818 Encounter for other preprocedural examination (principal); Z20.822 Contact with and (suspected) exposure to COVID-19; H25.11 Age-related nuclear cataract, right eye
CPT/HCPCS: 36415; 86328

== ENCOUNTER 2020-10-20 06:38 | Day surgery (SDC) | payer MEDICARE, SELFPAY ==
[2020-10-13 10:12] VITALS: BMI 27.1
[2020-10-20 07:01] VITALS: BP 157/80; PULSE 63; RESP 18; TEMP 36.2; O2SAT 98
[2020-10-20 08:20] VITALS: BP 141/67; PULSE 55; RESP 18; O2SAT 97
[2020-10-20 08:25] VITALS: BP 147/69; PULSE 55; RESP 18; O2SAT 95
[2020-10-20 08:30] VITALS: BP 150/70; PULSE 55; RESP 20; O2SAT 96
[2020-10-20 08:31] LABS: POC Glucose,Bedside 125 (70-110)
[2020-10-20 08:35] VITALS: BP 147/68; PULSE 54; RESP 20; O2SAT 96
[2020-10-20 08:42] VITALS: BP 132/75; PULSE 62; RESP 16; TEMP 36.6; O2SAT 97
== END 2020-10-20 08:45 | disposition home or self-care (01) ==
LOC: OR 06:39
PROVIDERS: PCP Emergency Medicine; Visit Provider Ophthalmology
DX: H25.813 Combined forms of age-related cataract, bilateral (principal); H53.149 Visual discomfort, unspecified; H57.03 Miosis; E11.9 Type 2 diabetes mellitus without complications; Z79.82 Long term (current) use of aspirin; Z79.899 Other long term (current) drug therapy; Z79.84 Long term (current) use of oral hypoglycemic drugs; F41.9 Anxiety disorder, unspecified; I25.10 Atherosclerotic heart disease of native coronary artery without angina pectoris; M19.90 Unspecified osteoarthritis, unspecified site; F32.9 Major depressive disorder, single episode, unspecified; I10 Essential (primary) hypertension; E78.5 Hyperlipidemia, unspecified; K21.9 Gastro-esophageal reflux disease without esophagitis; Z82.49 Family history of ischemic heart disease and other diseases of the circulatory system; Z82.3 Family history of stroke; Z83.3 Family history of diabetes mellitus
CPT/HCPCS: 66982; 82962; V2632

== ENCOUNTER → 2020-11-03 13:51 | Outpatient (CLI) | payer MEDICARE, SELFPAY ==
[2020-11-03 15:25] LABS: Alanine Aminotransferase 34 U/L (12-78); Albumin Level 4.5 g/dl (3.5-5.0); Alkaline Phosphatase 82 U/L (38-126); Anion Gap 15.3 mEq/L (5-15); Aspartate Amino Transferase 32 U/L (17-59); Bilirubin,Indirect 0.5 mg/dL (0.0-0.9); Bilirubin,Total 0.5 mg/dl (0.2-1.3); Bilirubin,Unconjugated 0.5 mg/dL (0.0-1.1); Blood Urea Nitrogen 25 mg/dl (9-20); Calcium 9.7 mg/dl (8.4-10.2); Carbon Dioxide 26 mmol/L (22.0-30.0); Chloride 102 mmol/L (98-107); Chol/HDL Ratio 4.3 (1-3.5); Cholesterol 173 mg/dl (140-200); Estimated Glomerular Filt Rate 59 ml/min (>60); GFR (African American) 72 ML/MIN (>60); Glucose 119 mg/dl (74-100); HDL Cholesterol 40 mg/dl (40-60); Magnesium 1.6 mg/dl (1.6-2.3); Potassium 4.3 mmoL/L (3.5-5.1); Sodium 139 mmol/L (136-145); Total Protein,Serum 7.2 g/dl (6.3-8.2); Triglycerides 168 mg/dl (30-150); VLDL Cholesterol 34 mg/dL (0-40)
[2020-11-03 15:36] LABS: Direct LDL Cholesterol 96.75 mg/dL (100-129)
== END ==
PROVIDERS: Visit Provider Physician Assistant
DX: E11.69 Type 2 diabetes mellitus with other specified complication (principal); E66.9 Obesity, unspecified; E78.2 Mixed hyperlipidemia; I25.10 Atherosclerotic heart disease of native coronary artery without angina pectoris; R06.02 Shortness of breath; R94.30 Abnormal result of cardiovascular function study, unspecified; Z95.1 Presence of aortocoronary bypass graft; I11.9 Hypertensive heart disease without heart failure; Z79.84 Long term (current) use of oral hypoglycemic drugs
CPT/HCPCS: 36415; 80048; 80061; 80076; 83735

== ENCOUNTER → 2020-12-29 11:35 | Outpatient (CLI) | payer MEDICARE, SELFPAY | PROVIDERS: Visit Provider Surgery | DX: Z01.812 Encounter for preprocedural laboratory examination (principal); Z20.822 Contact with and (suspected) exposure to COVID-19; Z12.11 Encounter for screening for malignant neoplasm of colon | CPT/HCPCS: U0003 ==

== ENCOUNTER 2020-12-31 06:20 | Day surgery (SDC) | payer MEDICARE, SELFPAY ==
[2020-12-22 13:02] VITALS: BMI 27.1
[2020-12-31 06:37] VITALS: BP 154/66; PULSE 58; RESP 18; TEMP 36.4; O2SAT 97
--- NOTE | 2020-12-31 06:55 | HMH.ANESCL ---
[facility] Anesthesia Checklist - Patient Identification Patient Identification: Arm Band - Structural Data Admitted From: Home Planned Operative Procedure/s: Colonoscopy Consent for Planned Operative Procedure(s) Verified: Yes - NPO Status Verified Time NPO: 00:00 - Airway Assessment C-Spine Mobility Assessed: Yes TMJ Mobility Assessed: Yes Dentition: Dentures-good fit - Neurological Assessment Level of Consciousness: Awake Hx Seizures: No Numbness or tingling in extremities: No - Anesthesia Plan Anesthesia Risk discussed: Yes Anesthesia Plan: Verified ASA Class: III Anesthesia Type: MAC [facility] History I have reviewed the patient's past medical history: Yes Medical History: Reports:: Anxiety, Coronary Artery Disease, Depression, Diabetes Mellitus Type 2, Gall Bladder Disease, Hyperlipidemia, Hypertension, Kidney Stones, Myocardial Infarction Denies:: Cancer, Diabetes Mellitus Type 1, Internal Pacemaker, MRSA, Seizures *Have you ever received a pneumonia vaccine?: No *Have you received a flu vaccine this season?: No Other Medical History: Reports: Arthritis, Thyroid Disease Anesthesia experience/problems:: None Laterality Cases: Right: Carpal Tunnel Release Other Surgeries: Yes: Angiogram, CABG, Cardiac Catheterization, Cardiac Surgery, Cholecystectomy, Colonoscopy, Coronary Stent, Open Heart Surgery, Other (bladder stones removed). No: Pacemaker Amputation: No Fractures: No - *Social History Last grade of school completed: High school graduate Smoking Status: Never smoker Alcohol Intake: never Substance Use Type: denies use *Occupational Status:: retired Housing: house Household Members: spouse *Travel in the last 8 weeks: None - Psychiatric History Pschychiatric History:: Reports:: Anxiety, Depression Family Hx:: Coronary Artery Disease, Diabetes
[2020-12-31 07:04] LABS: POC Glucose,Bedside 100 (70-110)
[2020-12-31 07:24] VITALS: O2SAT 97
[2020-12-31 08:04] VITALS: BP 97/52; PULSE 55; RESP 16; TEMP 36.3; O2SAT 96
--- NOTE | 2020-12-31 08:05 | HMH.SCOPE ---
- Procedure: Date: 12/31/20 Patient Date of :: 1945 Procedure Performed:: Colonoscopy with polypectomy Indications:: Screening Hemorrhoids Performing Provider:: Marquis Lovell MD Referring Provider:: . Sedation:: Monitored anesthesia care Procedure:: After informed consent was obtained the patient was taken to the endoscopy suite. Sedation ensued after the patient was transferred to the left lateral decubitus position. Pulse, blood pressure, and oxygen saturation were monitored throughout the procedure. Digital rectal exam revealed no significant abnormality. The colonoscope was placed in position. The entire colon was evaluated. The colonoscope was carefully removed and the patient was transferred to recovery in stable condition. Please see findings and specimens below for detail. Findings:: Hemorrhoidal cushions/tags with dominant right lateral tag (no sign of thrombosis or bleeding) Mild to moderate circumferential stenosis Bowel preparation moderate Significant spasticity and lack of relaxation Moderately-elongated: Melanosis coli Complex polyps (see specimens) Specimens:: Cecal polyp Complex fairly large pedunculated hepatic flexure polyp (snare) Complex lobulated pedunculated adjacent splenic flexure polyps (snare) Recommendations:: Timing of repeat colonoscopy is pending pathology but will likely be between 1-2 years secondary to moderate bowel preparation, spasticity, lack of relaxation, and size/nature of polyps. Ongoing discussion with regard to hemorrhoidal disease. Complications:: No immediate Estimated blood obtained (mL): 1
[2020-12-31 08:14] VITALS: BP 92/50; PULSE 52; RESP 16; O2SAT 94
[2020-12-31 08:24] VITALS: BP 96/69; PULSE 57; RESP 16; O2SAT 95
[2020-12-31 08:34] VITALS: BP 122/62; PULSE 61; RESP 16; O2SAT 96
== END 2020-12-31 08:34 | disposition home or self-care (01) ==
LOC: OUTP 06:21
PROVIDERS: PCP Emergency Medicine; Visit Provider Surgery
PROC: 0DJD8ZZ Inspection of Lower Intestinal Tract, Via Natural or Artificial Opening Endoscopic (ICD-10-PCS; principal; 2020-12-31 07:30)
DX: Z12.11 Encounter for screening for malignant neoplasm of colon (principal); K64.9 Unspecified hemorrhoids; K63.5 Polyp of colon; K56.699 Other intestinal obstruction unspecified as to partial versus complete obstruction; K58.9 Irritable bowel syndrome, unspecified; K63.89 Other specified diseases of intestine; I25.10 Atherosclerotic heart disease of native coronary artery without angina pectoris; E11.9 Type 2 diabetes mellitus without complications; E78.5 Hyperlipidemia, unspecified; I10 Essential (primary) hypertension; I25.2 Old myocardial infarction; F41.9 Anxiety disorder, unspecified; F32.9 Major depressive disorder, single episode, unspecified
CPT/HCPCS: 45380; 45385; 82962; 88305; J1610

== ENCOUNTER → 2021-01-20 12:22 | Outpatient (CLI) | payer MEDICARE, SELFPAY ==
[2021-01-21 08:32] LABS: Basophils # 0.1 K/mm3 (0-0.2); Basophils % 0.8 % (0.1-2.0); Eosinophils # 0.2 K/mm3 (0.0-0.4); Eosinophils % 2.6 % (0.1-12.0); Hematocrit 48.2 % (42.0-52.0); Hemoglobin 15.4 g/dL (14.1-18.0); Lymphocytes # 1.6 K/mm3 (0.7-4.5); Mean Corpuscular Hemoglobin 29.1 pg (27.0-31.2); Mean Platelet Volume 9.3 fl (7.4-10.4); Monocytes # 0.5 K/mm3 (0.1-1.0); Monocytes % 6.9 % (1.7-9.3); Neutrophils # 4.9 K/mm3 (1.8-7.8); Neutrophils % 67.5 % (37.0-80.0); Platelet Count 192 K/mm3 (142-424); Red Cell Distribution Width 15.1 % (11.5-17.5); White Blood Count 7.3 K/mm3 (4.8-10.8)
[2021-01-21 08:51] LABS: Alanine Aminotransferase 30 U/L (12-78); Albumin Level 4.2 g/dl (3.5-5.0); Albumin/Globulin Ratio 1.5 (1.1-1.8); Alkaline Phosphatase 64 U/L (38-126); Anion Gap 14.7 mEq/L (5-15); Aspartate Amino Transferase 26 U/L (17-59); Bilirubin,Total 0.7 mg/dl (0.2-1.3); Blood Urea Nitrogen 15 mg/dl (9-20); Calcium 9.2 mg/dl (8.4-10.2); Carbon Dioxide 28 mmol/L (22.0-30.0); Chloride 104 mmol/L (98-107); Chol/HDL Ratio 4.5 (1-3.5); Cholesterol 159 mg/dl (140-200); Estimated Glomerular Filt Rate 66 ml/min (>60); GFR (African American) 79 ML/MIN (>60); Globulin 2.8 g/dL (1.3-3.2); Glucose 96 mg/dl (74-100); HDL Cholesterol 35 mg/dl (40-60); Potassium 4.7 mmoL/L (3.5-5.1); Sodium 142 mmol/L (136-145); Triglycerides 129 mg/dl (30-150); VLDL Cholesterol 26 mg/dL (0-40)
[2021-01-21 09:00] LABS: Hemoglobin A1C 5.2 % (4.0-6.0)
[2021-01-21 09:02] LABS: Direct LDL Cholesterol 93.39 mg/dL (100-129)
[2021-01-21 09:08] LABS: Free T4 (Free Thyroxine) 1.29 ng/dl (0.78-2.19)
[2021-01-21 09:22] LABS: Thyroid Stimulating Hormone 2.72 uIU/mL (0.465-4.68)
== END ==
PROVIDERS: Visit Provider Emergency Medicine
DX: E78.5 Hyperlipidemia, unspecified (principal); E11.9 Type 2 diabetes mellitus without complications; E07.9 Disorder of thyroid, unspecified; Z79.84 Long term (current) use of oral hypoglycemic drugs
CPT/HCPCS: 36415; 80053; 80061; 83036; 84439; 84443; 85025

== ENCOUNTER → 2021-12-08 13:27 | Outpatient (CLI) | payer MEDICARE, SELFPAY ==
[2021-12-08 15:00] LABS: Alanine Aminotransferase 37 U/L (12-78); Albumin Level 4.5 g/dl (3.5-5.0); Alkaline Phosphatase 75 U/L (38-126); Aspartate Amino Transferase 29 U/L (17-59); Bilirubin,Indirect 0.6 mg/dL (0.0-0.9); Bilirubin,Total 0.6 mg/dl (0.2-1.3); Bilirubin,Unconjugated 0.6 mg/dL (0.0-1.1); Chol/HDL Ratio 4.4 (1-3.5); Cholesterol 179 mg/dl (140-200); HDL Cholesterol 41 mg/dl (40-60); Triglycerides 180 mg/dl (30-150); VLDL Cholesterol 36 mg/dL (0-40)
[2021-12-08 15:11] LABS: Direct LDL Cholesterol 88.81 mg/dL (100-129)
== END ==
PROVIDERS: Visit Provider Nurse Practitioner
DX: E11.9 Type 2 diabetes mellitus without complications (principal); I11.9 Hypertensive heart disease without heart failure; Z79.84 Long term (current) use of oral hypoglycemic drugs
CPT/HCPCS: 36415; 80061; 80076

== ENCOUNTER → 2022-03-19 12:29 | Outpatient (CLI) | payer MEDICARE, SELFPAY | PROVIDERS: PCP Emergency Medicine; Visit Provider Emergency Medicine | DX: E11.9 Type 2 diabetes mellitus without complications (principal); Z79.84 Long term (current) use of oral hypoglycemic drugs | CPT/HCPCS: 36415; 83036 ==

== ENCOUNTER → 2022-08-22 13:30 | Outpatient (CLI) | payer MEDICARE, SELFPAY ==
[2022-08-22 15:04] LABS: Basophils # 0.1 K/mm3 (0-0.2); Basophils % 0.9 % (0.1-2.0); Eosinophils # 0.2 K/mm3 (0.0-0.4); Eosinophils % 3.7 % (0.1-12.0); Hematocrit 44.9 % (42.0-52.0); Hemoglobin 15.1 g/dL (14.1-18.0); Lymphocytes # 1.7 K/mm3 (0.7-4.5); Lymphocytes % 31.2 % (10-50); Mean Corpuscular HGB Conc 33.8 g/dL (31.8-35.4); Mean Corpuscular Hemoglobin 29.7 pg (27.0-31.2); Mean Corpuscular Volume 87.8 fl (80-94); Mean Platelet Volume 8.2 fl (7.4-10.4); Monocytes # 0.4 K/mm3 (0.1-1.0); Monocytes % 7.7 % (1.7-9.3); Neutrophils # 3.2 K/mm3 (1.8-7.8); Neutrophils % 56.6 % (37.0-80.0); Platelet Count 195 K/mm3 (142-424); Red Blood Count 5.11 M/mm3 (4.60-6.20); White Blood Count 5.6 K/mm3 (4.8-10.8)
[2022-08-22 15:33] LABS: Alanine Aminotransferase 33 U/L (12-78); Albumin Level 4.3 g/dl (3.5-5.0); Albumin/Globulin Ratio 1.7 (1.1-1.8); Alkaline Phosphatase 61 U/L (38-126); Anion Gap 14.2 mEq/L (5-15); Aspartate Amino Transferase 31 U/L (17-59); Bilirubin,Total 0.7 mg/dl (0.2-1.3); Blood Urea Nitrogen 18 mg/dl (9-20); Calcium 8.9 mg/dl (8.4-10.2); Carbon Dioxide 27 mmol/L (22.0-30.0); Chloride 103 mmol/L (98-107); Cholesterol 167 mg/dl (140-200); Estimated Glomerular Filt Rate 73 ml/min (>60); GFR (African American) 88 ML/MIN (>60); Globulin 2.5 g/dL (1.3-3.2); Glucose 98 mg/dl (74-100); HDL Cholesterol 42 mg/dl (40-60); Potassium 4.2 mmoL/L (3.5-5.1); Sodium 140 mmol/L (136-145); Total Protein,Serum 6.8 g/dl (6.3-8.2); Triglycerides 161 mg/dl (30-150); VLDL Cholesterol 32 mg/dL (0-40)
[2022-08-22 15:44] LABS: Direct LDL Cholesterol 83.37 mg/dL (100-129)
[2022-08-22 15:49] LABS: 25-OH Vitamin D, Total 64.6 ng/mL (30-100)
[2022-08-22 15:50] LABS: Free T4 (Free Thyroxine) 1.14 ng/dl (0.78-2.19)
[2022-08-22 16:02] LABS: Hemoglobin A1C 5.2 % (4.0-6.0)
[2022-08-22 16:04] LABS: Prostate Specific Ag Screen 0.7 ng/ml (0.0-4.0); Thyroid Stimulating Hormone 3.25 uIU/mL (0.465-4.68)
== END ==
PROVIDERS: PCP Emergency Medicine; Visit Provider Emergency Medicine
DX: I10 Essential (primary) hypertension (principal); E11.69 Type 2 diabetes mellitus with other specified complication; E55.9 Vitamin D deficiency, unspecified; E66.9 Obesity, unspecified; Z12.5 Encounter for screening for malignant neoplasm of prostate
CPT/HCPCS: 80053; 80061; 82306; 83036; 84439; 84443; 85025; G0103

== ENCOUNTER → 2023-04-06 14:05 | Outpatient (CLI) | payer MEDICARE, SELFPAY ==
--- NOTE | 2023-04-06 14:09 | CA_ITS ---
APPROVED REPORT EXAM: Comprehensive 2D, Doppler, and color-flow Echocardiogram Promotions Specialist: Radha Tinoco RDCS Ht: 6 ft 0 in Wt: 195lbs BSA: 2.11 BP: 129/56 mmHg Indications: CAD,H/O CABG,HTN,HLP 2D Dimensions LVOT 1.82 cm (M/F) 1.5-2.5 M-Mode Dimensions RVDd 2.86 cm (0.9-2.6) LA Diam 2.98 cm (1.9-4.0) LVDd 4.94 cm (3.5-5.7) Ao Diam 3.41 cm (2.0-3.7) LVDs 3.72 cm (3.5-5.7) IVSd 0.97 cm (0.6-1.1) PWd 0.93 cm (0.6-1.1) EF (Teich) 48.80% FS 24.70% EDV (Teich) 115.00 mL TAPSE 1.83 (<1.7) ESV (Teich) 58.90 mL LV Diastology E Decel Time 280.00 (160-240 msec) E/A Ratio 1.0 MED E' 6.10 (< 7 cm/sec) E'/MED E' Ratio 11.25 (>14) LAT E' 7.50 (<10 cm/sec) E/LAT E' Ratio 9.15 (>14) Mitral Valve MV E Max Jimmy. 69.00 (40-130 cm/s) MV A Velocity 70.00 (40-130 cm/s) E/A Ratio 0.98 MV Decel. Time 280.00 (160-240 ms) MV PHT 82.00 ms Left Ventricle The left ventricle is normal size. The left ventricular systolic function is normal. The left ventricular ejection fraction is within the normal range. There is normal left ventricular wall thickness. There is normal LV segmental wall motion. The left ventricular diastolic function is normal. LVEF is 60%. Right Ventricle Right ventricle is mildly dilated. The right ventricular systolic function is normal. Atria The left atrium size is normal. The right atrium size is normal. There is no Doppler evidence of interatrial shunt. Aortic Valve The aortic valve mildly thickened. There is no aortic valvular stenosis. No aortic regurgitation is present. Mitral Valve The mitral valve is mildly thickened. No evidence of mitral valve stenosis. Mild mitral regurgitation. Tricuspid Valve The tricuspid valve leaflets are thin and pliable. Trace tricuspid regurgitation. There is insufficient TR jet to estimate RVSP. Pulmonic Valve The pulmonary valve is normal in structure. Trace pulmonic regurgitation. Great Vessels The aortic root is normal in size. The ascending aorta is not well visualized. IVC is normal in size and collapses >50% with inspiration. Pericardium There is no pericardial effusion. Other Information Study Quality: Fair Conclusion Normal biventricular systolic function. Mild RV dilation. Mild MR. Electronically signed by : Marleen Pagan, 04/11/2023 19:46:52
== END ==
PROVIDERS: PCP Emergency Medicine; Visit Provider Nurse Practitioner
DX: E78.5 Hyperlipidemia, unspecified (principal); I10 Essential (primary) hypertension; I25.10 Atherosclerotic heart disease of native coronary artery without angina pectoris; R01.1 Cardiac murmur, unspecified; Z95.1 Presence of aortocoronary bypass graft
CPT/HCPCS: 93306

== ENCOUNTER 2023-08-25 18:30 | Outpatient (CLI) | payer MEDICARE, SELFPAY ==
[2023-08-25 17:55] LABS: Basophils % 0.5 % (0.1-2.0); Eosinophils # 0.2 K/mm3 (0.0-0.4); Eosinophils % 2.9 % (0.1-12.0); Hematocrit 45.9 % (42.0-52.0); Hemoglobin 15.6 g/dL (14.1-18.0); Lymphocytes # 1.6 K/mm3 (0.7-4.5); Lymphocytes % 27.7 % (10-50); Mean Corpuscular HGB Conc 34.1 g/dL (31.8-35.4); Mean Corpuscular Hemoglobin 29.5 pg (27.0-31.2); Mean Corpuscular Volume 86.7 fl (80-94); Mean Platelet Volume 7.9 fl (7.4-10.4); Monocytes # 0.5 K/mm3 (0.1-1.0); Monocytes % 9.5 % (1.7-9.3); Neutrophils # 3.4 K/mm3 (1.8-7.8); Neutrophils % 59.4 % (37.0-80.0); Platelet Count 192 K/mm3 (142-424); Red Blood Count 5.29 M/mm3 (4.60-6.20); Red Cell Distribution Width 14.5 % (11.5-17.5); White Blood Count 5.7 K/mm3 (4.8-10.8)
[2023-08-25 18:04] LABS: Alanine Aminotransferase 36 U/L (12-78); Albumin Level 4.2 g/dl (3.5-5.0); Albumin/Globulin Ratio 1.6 (1.1-1.8); Alkaline Phosphatase 77 U/L (38-126); Anion Gap 12.4 mEq/L (5-15); Aspartate Amino Transferase 34 U/L (17-59); Bilirubin,Total 0.6 mg/dl (0.2-1.3); Blood Urea Nitrogen 13 mg/dl (9-20); Calcium 9.2 mg/dl (8.4-10.2); Carbon Dioxide 26 mmol/L (22.0-30.0); Chloride 106 mmol/L (98-107); Chol/HDL Ratio 4.7 (1-3.5); Cholesterol 169 mg/dl (140-200); Estimated Glomerular Filt Rate 73 ml/min (>60); GFR (African American) 88 ML/MIN (>60); Globulin 2.7 g/dL (1.3-3.2); Glucose 117 mg/dl (74-100); HDL Cholesterol 36 mg/dl (40-60); Potassium 4.4 mmoL/L (3.5-5.1); Sodium 140 mmol/L (136-145); Total Protein,Serum 6.9 g/dl (6.3-8.2); Triglycerides 237 mg/dl (30-150); VLDL Cholesterol 47 mg/dL (0-40)
[2023-08-25 18:10] LABS: Amphetamine/Metha Screen,Urine Negative ng/ml (<1000); Barbiturates Screen,Urine Negative ng/ml (<200)
[2023-08-25 18:11] LABS: Benzodiazepines Screen,Urine Positive ng/ml (<200); Cannabinoid Screen,Urine Negative ng/ml (<50)
[2023-08-25 18:12] LABS: Cocaine Screen,Urine Negative ng/ml (<300)
[2023-08-25 18:13] LABS: Methadone Screen,Urine Negative ng/ml (<300); Opiate Screen,Urine Negative ng/ml (<300)
[2023-08-25 18:16] LABS: Phencyclidine Screen,Urine Negative ng/ml (<25)
[2023-08-25 18:20] LABS: Microalbumin/Creatinine Ratio 23.3
[2023-08-25 18:23] LABS: 25-OH Vitamin D, Total 38.9 ng/mL (30-100)
[2023-08-25 18:31] LABS: Creatinine,Urine Random 126 mg/dL (Not Estab.)
[2023-08-25 18:35] LABS: Prostate Specific Ag Screen 0.6 ng/ml (0.0-4.0); Thyroid Stimulating Hormone 3.14 uIU/mL (0.465-4.68)
[2023-08-25 18:54] LABS: Vitamin B12 467 pg/mL (239-931)
[2023-08-25 22:36] LABS: Hemoglobin A1C 5.7 % (4.0-6.0)
== END 2023-08-25 23:59 ==
LOC: LAB.DROPOF 18:31
PROVIDERS: PCP Family Medicine; Visit Provider Family Medicine
DX: E55.9 Vitamin D deficiency, unspecified (principal); E11.9 Type 2 diabetes mellitus without complications; Z12.5 Encounter for screening for malignant neoplasm of prostate; E78.5 Hyperlipidemia, unspecified; R53.83 Other fatigue; Z79.899 Other long term (current) drug therapy; I65.23 Occlusion and stenosis of bilateral carotid arteries
CPT/HCPCS: 80053; 80061; 80307; 82043; 82306; 82570; 82607; 83036; 84443; 85025; G0103

== ENCOUNTER 2024-02-06 15:44 | Outpatient (CLI) | payer MEDICARE, SELFPAY ==
[2024-02-06 16:48] LABS: Alanine Aminotransferase 30 U/L (12-78); Albumin Level 4.3 g/dl (3.5-5.0); Alkaline Phosphatase 72 U/L (38-126); Anion Gap 8.4 mEq/L (5-15); Aspartate Amino Transferase 31 U/L (17-59); Bilirubin,Indirect 0.5 mg/dL (0.0-0.9); Bilirubin,Total 0.5 mg/dl (0.2-1.3); Bilirubin,Unconjugated 0.6 mg/dL (0.0-1.1); Blood Urea Nitrogen 20 mg/dl (9-20); Calcium 9.6 mg/dl (8.4-10.2); Carbon Dioxide 30 mmol/L (22.0-30.0); Chloride 107 mmol/L (98-107); Chol/HDL Ratio 4.8 (1-3.5); Cholesterol 186 mg/dl (140-200); Estimated Glomerular Filt Rate 59 ml/min (>60); GFR (African American) 71 ML/MIN (>60); Glucose 121 mg/dl (74-100); HDL Cholesterol 39 mg/dl (40-60); Magnesium 1.7 mg/dl (1.6-2.3); Potassium 4.4 mmoL/L (3.5-5.1); Sodium 141 mmol/L (136-145); Triglycerides 269 mg/dl (30-150); VLDL Cholesterol 54 mg/dL (0-40)
[2024-02-06 16:50] LABS: Basophils # 0.1 K/mm3 (0-0.2); Basophils % 0.8 % (0.1-2.0); Eosinophils # 0.2 K/mm3 (0.0-0.4); Eosinophils % 3.4 % (0.1-12.0); Hematocrit 44.2 % (42.0-52.0); Hemoglobin 15.3 g/dL (14.1-18.0); Lymphocytes # 1.7 K/mm3 (0.7-4.5); Lymphocytes % 24.9 % (10-50); Mean Corpuscular HGB Conc 34.5 g/dL (31.8-35.4); Mean Corpuscular Hemoglobin 29.9 pg (27.0-31.2); Mean Corpuscular Volume 86.8 fl (80-94); Monocytes # 0.6 K/mm3 (0.1-1.0); Monocytes % 9.2 % (1.7-9.3); Neutrophils # 4.3 K/mm3 (1.8-7.8); Neutrophils % 61.6 % (37.0-80.0); Platelet Count 201 K/mm3 (142-424); White Blood Count 6.9 K/mm3 (4.8-10.8)
[2024-02-06 17:00] LABS: Direct LDL Cholesterol 99.87 mg/dL (100-129)
[2024-02-06 17:18] LABS: Thyroid Stimulating Hormone 3.73 uIU/mL (0.465-4.68)
[2024-02-06 18:11] LABS: Free T4 (Free Thyroxine) 1.04 ng/dl (0.78-2.19)
== END 2024-02-06 23:59 | disposition home or self-care (01) ==
LOC: LAB 15:45
PROVIDERS: PCP Physician Assistant; Visit Provider Internal Medicine
DX: R53.83 Other fatigue (principal); I73.9 Peripheral vascular disease, unspecified; E78.2 Mixed hyperlipidemia; I25.10 Atherosclerotic heart disease of native coronary artery without angina pectoris; R06.02 Shortness of breath; I10 Essential (primary) hypertension; Z95.1 Presence of aortocoronary bypass graft
CPT/HCPCS: 36415; 80048; 80061; 80076; 83735; 84439; 84443; 85025

== ENCOUNTER 2024-04-09 08:56 | Day surgery (SDC) | payer MEDICARE, SELFPAY ==
[2024-04-05 14:15] VITALS: BMI 27.8
[2024-04-09 09:24] VITALS: BP 148/71; PULSE 63; RESP 18; TEMP 36.6; O2SAT 96
[2024-04-09] MEDS: TETRACAINE 0.5% OPTH SOL 15ML OP (09:34)
[2024-04-09] MEDS: APRACLONIDINE 0.5% OPHTH SOLN 5ML OP (09:34)
[2024-04-09] MEDS: TROPICAMIDE 1% OPTH SOLN 2ML OP (09:34)
[2024-04-09] MEDS: PHENYLEPHRINE 2.5% OPHTH SOLN 2ML OP (09:35)
[2024-04-09 09:38] LABS: POC Glucose,Bedside 135 (70-110)
--- NOTE | 2024-04-09 13:15 | P.PCN_ITS ---
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 The patient has noticed that the vision has decreased from the previous good level postop. The patient reports that he/she is having trouble reading and/or driving or that glare is giving them a problem. On exam, the patient was found to have visually significant posterior capsular opacification. The treatment options, risks and benefits were explained and the patient elected to have YAG laser capsulotomy in an attempt to improve the vision. Of note, the best corrected visual acuity is in the 23/30 or worse range by refraction or glare testing. The eye was dilated and 1 drop of 0.5% Iopidine applied. YAG laser energy was applied to the posterior capsular bag with good formation of an opening and no complications were noted. The patient will be seen back for follow up in 2 weeks [address]
== END 2024-04-09 12:35 | disposition home or self-care (01) ==
LOC: OUTP 08:57
PROVIDERS: PCP Family Medicine; Visit Provider Ophthalmology
PROC: (CPT 66821; principal; 2024-04-09 09:00)
DX: H26.491 Other secondary cataract, right eye (principal); E11.9 Type 2 diabetes mellitus without complications
CPT/HCPCS: 66821; 82962

== ENCOUNTER 2024-12-05 13:34 | Outpatient (CLI) | payer MEDICARE, SELFPAY ==
[2024-12-05 13:54] LABS: Basophils % 0.5 % (0.1-2.0); Eosinophils # 0.2 Kmm3 (0.0-0.4); Eosinophils % 3.4 % (0.1-12.0); Hematocrit 45.2 % (42.0-52.0); Hemoglobin 15.1 g/dL (14.1-18.0); Immature Granulocytes # 0.02 10^3uL; Immature Granulocytes % 0.3 %; Lymphocytes % 31.7 % (10-50); Mean Corpuscular HGB Conc 33.4 g/dL (31.8-35.4); Mean Corpuscular Hemoglobin 28.9 pg (27.0-31.2); Mean Corpuscular Volume 86.4 fl (80-94); Mean Platelet Volume 9.4 fl (7.4-10.4); Monocytes # 0.7 K/mm3 (0.1-1.0); Monocytes % 11.2 % (1.7-9.3); Neutrophils # 3.3 K/mm3 (1.8-7.8); Neutrophils % 52.9 % (37.0-80.0); Nucleated Red Blood Cells # 0 10^3/uL; Nucleated Red Blood Cells % 0 %; Platelet Count 190 K/mm3 (142-424); Red Blood Count 5.23 M/mm3 (4.60-6.20); Red Cell Distribution Width-SD 44.2 fL; White Blood Count 6.2 K/mm3 (4.8-10.8)
[2024-12-05 14:53] LABS: Alanine Aminotransferase 28 U/L (12-78); Albumin Level 4.5 g/dl (3.5-5.0); Alkaline Phosphatase 80 U/L (38-126); Anion Gap 10.3 mEq/L (5-15); Aspartate Amino Transferase 26 U/L (17-59); Bilirubin,Direct 0.1 mg/dl (0.0-0.4); Bilirubin,Indirect 0.5 mg/dL (0.0-0.9); Bilirubin,Total 0.6 mg/dl (0.2-1.3); Bilirubin,Unconjugated 0.5 mg/dL (0.0-1.1); Blood Urea Nitrogen 17 mg/dl (9-20); Calcium 9.2 mg/dl (8.4-10.2); Carbon Dioxide 28 mmol/L (22.0-30.0); Chloride 105 mmol/L (98-107); Cholesterol 156 mg/dl (140-200); Estimated Glomerular Filt Rate 65 ml/min (>60); GFR (African American) 79 ML/MIN (>60); Glucose 111 mg/dl (74-100); HDL Cholesterol 39 mg/dl (40-60); Magnesium 1.9 mg/dl (1.6-2.3); Potassium 4.3 mmoL/L (3.5-5.1); Sodium 139 mmol/L (136-145); Total Protein,Serum 6.8 g/dl (6.3-8.2); Triglycerides 244 mg/dl (30-150); VLDL Cholesterol 49 mg/dL (0-40)
[2024-12-05 15:04] LABS: Direct LDL Cholesterol 83.59 mg/dL (100-129); Free T4 (Free Thyroxine) 1.09 ng/dl (0.78-2.19)
[2024-12-05 15:22] LABS: Thyroid Stimulating Hormone 4.56 uIU/mL (0.465-4.68)
== END 2024-12-05 23:59 | disposition home or self-care (01) ==
LOC: LAB 13:35
PROVIDERS: PCP Family Medicine; Visit Provider Internal Medicine
DX: I25.10 Atherosclerotic heart disease of native coronary artery without angina pectoris (principal); I10 Essential (primary) hypertension; Z95.1 Presence of aortocoronary bypass graft; R06.02 Shortness of breath; E78.2 Mixed hyperlipidemia; I73.9 Peripheral vascular disease, unspecified; I65.23 Occlusion and stenosis of bilateral carotid arteries; R53.83 Other fatigue
CPT/HCPCS: 36415; 80048; 80061; 80076; 83735; 84439; 84443; 85025

== ENCOUNTER 2025-01-16 08:52 | Outpatient (CLI) | payer MEDICARE, SELFPAY ==
[2025-01-16 20:19] LABS: Prostate Specific Ag Screen 0.5 ng/ml (0.0-4.0)
== END 2025-01-16 23:59 | disposition home or self-care (01) ==
LOC: LAB.DROPOF 01-20 08:53
PROVIDERS: PCP Family Medicine; Visit Provider Family Medicine
DX: Z12.5 Encounter for screening for malignant neoplasm of prostate (principal)
CPT/HCPCS: G0103

== ENCOUNTER 2025-06-18 14:45 | Outpatient (CLI) | payer MEDICARE, SELFPAY ==
--- NOTE | 2025-06-18 15:15 | CA_ITS ---
APPROVED REPORT EXAM: Comprehensive 2D, Doppler, and color-flow Echocardiogram Home Health Nurse: TOMASZ Grigsby, RVS Ht: 6 ft 0 in Wt: 199lbs BSA: 2.13 BP: 130/65 mmHg Indications: Dyspnea, Fatigue, CAD-CABG, HTN, HLD, ENEDELIA, PAD 2D Dimensions Left Atrium 3.97 cm LA Volume 38.40 mL LA Volume Index 18.248005 mL/m2 (M/F) 16-34 M-Mode Dimensions RVDd 2.84 cm (0.9-2.6) LA Diam 3.66 cm (1.9-4.0) LVDd 4.85 cm (3.5-5.7) LVDs 2.99 cm (3.5-5.7) IVSd 0.72 cm (0.6-1.1) PWd 0.76 cm (0.6-1.1) EF (Teich) 68.50% EPSs 0.84 cm FS 38.40% EDV (Teich) 110.20 mL TAPSE 1.33 (<1.7) ESV (Teich) 34.70 mL LV Diastology E Decel Time 310 (160-240 msec) E/A Ratio 0.73 MED A' 9.20 cm/s LAT A' 6.10 cm/s Aortic Valve ISIDORO Index 1.04 cm2/m2 AoV Peak Jimmy. 124.0 (50-130 cm/s) AO Peak GR. 6.20 mmHg AO Mean GR. 3.10 (<5 mmHg) AO VTI 21.8 (18-25 cm) ISIDORO (VTI) 2.27 (2.5-4.5 cm2) Mitral Valve MV A Velocity 78.0 (40-130 cm/s) E/A Ratio 0.73 Left Ventricle The left ventricle is normal size. Left ventricular systolic function is normal. The left ventricular ejection fraction is within the normal range. There is increased left ventricular wall thickness. There is normal LV segmental wall motion. Transmitral Doppler flow pattern suggests impaired LV relaxation. LVEF is 55% Right Ventricle The right ventricle is normal size. The right ventricular systolic function is normal. Atria The left atrium size is normal. The right atrium size is normal. There is no color Doppler evidence of interatrial shunt. Aortic Valve The aortic valve opens well. There is no hemodynamically significant aortic valvular stenosis. No aortic regurgitation is present. Mitral Valve The mitral valve is normal in structure. No evidence of mitral valve stenosis. Trace mitral regurgitation is present. Tricuspid Valve The tricuspid valve leaflets are thin and pliable. Trace tricuspid regurgitation. There is insufficient TR jet to estimate RVSP. Pulmonic Valve The pulmonary valve is grossly normal in structure. Trace pulmonic valve regurgitation is present. Great Vessels The aortic root is normal in size. IVC is normal in size and collapses >50% with inspiration. Pericardium There is no pericardial effusion. Other Information Study Quality: Fair Conclusion Normal biventricular systolic function. No significant valvular stenosis or regurgitation. Electronically signed by : Marleen Pagan MD 06/27/2025 16:12:32
--- OUTSIDE RECORDS SUMMARY | 2025-06-18 16:11 | XMS_ITS | Clinical Summary ---
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 Active amLODIPine (NORVASC) 5 MG tablet Take 5 mg by mouth 2 (two) times a day. Active aspirin 81 MG EC tablet Take 81 mg by mouth Daily. Active digoxin (LANOXIN) 250 MCG tablet Take 250 mcg by mouth Daily. Active escitalopram (LEXAPRO) 20 MG tablet Take 20 mg by mouth Daily. Active finasteride (PROSCAR) 5 MG tablet Take 5 mg by mouth Daily. Active furosemide (LASIX) 40 MG tablet Take 40 mg by mouth 2 (Two) Times a Day. Active levocetirizine (XYZAL) 5 MG tablet Take 5 mg by mouth Every Evening. Active levothyroxine (SYNTHROID, LEVOTHROID) 25 MCG tablet Take 25 mcg by mouth Daily. Active lisinopril (PRINIVIL,ZESTR IL) 2.5 MG tablet Take 2.5 mg by mouth Daily. Active magnesium oxide (MAG-OX) 400 MG tablet Take 400 mg by mouth Daily. Active metFORMIN (GLUCOPHAGE) 500 MG tablet Take 500 mg by mouth 2 (Two) Times a Day With Meals. Active metoprolol succinate XL (TOPROL-XL) 100 MG 24 hr tablet Take 100 mg by mouth Daily. Active naproxen (NAPROSYN) 500 MG tablet Take 500 mg by mouth 2 (Two) Times a Day With Meals. Active nitroglycerin (NITRODUR) 0.4 MG/HR patch Place 1 patch on the skin as directed by provider Daily. Active nitroglycerin (NITROSTAT) 0.[address] 0.4 mg under the tongue Every 5 (Five) Minutes As Needed for Chest Pain. Take no more than 3 doses in 15 minutes. Active ondansetron (ZOFRAN) 4 MG tablet Take 4 mg by mouth Every 8 (Eight) Hours As Needed for Nausea or Vomiting. Active pantoprazole (PROTONIX) 40 MG EC tablet Take 40 mg by mouth Daily. Active promethazine (PHENERGAN) 25 MG tablet Take 25 mg by mouth 2 (two) times a day. Active rosuvastatin (CRESTOR) 5 MG tablet Take 5 mg by mouth Daily. Active Saw [place], Serenoa repens, (SAW PALMETTO PO) Take 900 mg by mouth 2 (two) times a day. Active SENNOSIDES PO Take 34.4 mg by mouth Every Night. Active spironolactone (ALDACTONE) 25 MG tablet Take 25 mg by mouth Daily. Active tamsulosin (FLOMAX) 0.4 MG capsule 24 hr capsule Take 1 capsule by mouth 2 (two) times a day. Active clopidogrel (PLAVIX) 75 MG tablet Take 75 mg by mouth Daily. Active Family History Relation Name Status Comments Father Mother Social History Tobacco Use Types Packs/Day Years Used Date Smoking Tobacco: Never Smokeless Tobacco: Never Alcohol Use Standard Drinks/Week Comments Never 0 (1 standard drink = 0.6 oz pur e alcohol) AUDIT-C Answer Date Recorded Q1: How often do you have a drink containing alc ohol? Never 08/19/2020 Average Number of Drinks Not on file 021 Frequency of Binge Drinking Not on file 08/01 Abuse Screen Answer Date Recorded Unsafe at Home or Work/School Not on file Feels Threatened by Someone? Not on file 03/2023 Does Anyone Keep You from Co ntacting Others or Doint Things Outside the Home? Not on file 05/08/2023 Physical Sign of Abuse Present Not on file 1 Housing Stability Answer Date Recorded Current Living Arrangements Not on file 03/2023 Potentially Unsafe Housing Conditions Not on tamar e 05/08/2023 Family and Community Support Answer Rich e Recorded Help with Day-to-Day Activities Not on file 05/08/2023 Lonely or Isolated Not on file 05/08/2023 Employment Answer Date Recorded Do you want help finding or keeping work or a dc b? Not on file 05/08/2023 Disabilities Answer Date Recorded Concentrating, Remembering, or Making Decisions Difficulty Not on file 05/08/2023 Doing Errands Independently Difficulty Not on fi le 05/08/2023 Education Answer Date Recorded Help with school or training? Not on file Preferred Language Not on file 05/08/2023 Sex and Gender Information Value Date Recorded Sex Assigned at Not on file Legal Sex Male 12:32 PM EDT Gender Identity Not on file Sexual Orientation Not on file Last Filed Vital Signs Vital Sign Reading Time Taken Comments Blood Pressure 132/64 08/19/2020 1:48 PM EST Pulse - - Temperature 36.1 C (96.9 F) 08/19/2020 1:48 PM EST Respiratory Rate - - Oxygen Saturation - - Inhaled Oxygen Concentration - - Weight 92.1 kg (203 lb) 08/19/2020 1:48 PM EST Height 182.9 cm (6') 08/19/2020 1:48 PM EST Body Mass Index 27.53 08/19/2020 1:48 PM EST Plan of Treatment Health Maintenance Due Date Last Done Comments TDAP/TD VACCINES (1 - Tdap) 1966 Pneumococcal Vaccine 50+ (1 of 1 - PCV) 1997 ZOSTER VACCINE (1 of 2) 1997 ANNUAL PHYSICAL 08/19/2020 HEPATITIS C SCREENING 08/19/2020 RSV Vaccine - Adults (1 - 1-dose 75+ series) 2 INFLUENZA VACCINE 02/28/2025 COVID-19 Vaccine ( - 2023- season) 2025 Insurance [facility] Care Teams Hoop Riveting Machine Operator Relationship Specialty Start Date End Date Hemant Francis MD [facility] [address] ATTN: [place] [address] PCP - General Emergency Medicine 08/06/20
== END 2025-06-18 23:59 | disposition home or self-care (01) ==
LOC: RT 14:45
PROVIDERS: PCP Family Medicine; Visit Provider Nurse Practitioner
DX: I25.10 Atherosclerotic heart disease of native coronary artery without angina pectoris (principal); I10 Essential (primary) hypertension; E78.5 Hyperlipidemia, unspecified; I65.29 Occlusion and stenosis of unspecified carotid artery; I73.9 Peripheral vascular disease, unspecified; Z95.1 Presence of aortocoronary bypass graft
CPT/HCPCS: 93306

== ENCOUNTER 2025-07-17 15:29 | Outpatient (CLI) | payer MEDICARE, SELFPAY ==
[2025-07-17 20:55] LABS: Hematocrit 45.2 % (42.0-52.0); Hemoglobin 15.4 g/dL (14.1-18.0); Immature Granulocytes % 0.2 %; Mean Corpuscular HGB Conc 34.1 g/dL (31.8-35.4); Mean Corpuscular Hemoglobin 29.1 pg (27.0-31.2); Mean Corpuscular Volume 85.4 fl (80-94); Nucleated Red Blood Cells % 0 %; Platelet Count 198 K/mm3 (142-424); Red Blood Count 5.29 M/mm3 (4.60-6.20); Red Cell Distribution Width-SD 43.8 fL; White Blood Count 5.8 K/mm3 (4.8-10.8)
[2025-07-17 21:16] LABS: Alanine Aminotransferase 25 U/L (12-78); Albumin Level 4.7 g/dl (3.5-5.0); Albumin/Globulin Ratio 1.7 (1.1-1.8); Alkaline Phosphatase 64 U/L (38-126); Anion Gap 14.3 mEq/L (5-15); Aspartate Amino Transferase 32 U/L (17-59); Bilirubin,Total 0.7 mg/dl (0.2-1.3); Blood Urea Nitrogen 21 mg/dl (9-20); Calcium 9.4 mg/dl (8.4-10.2); Carbon Dioxide 23 mmol/L (22.0-30.0); Chloride 106 mmol/L (98-107); Cholesterol 164 mg/dl (140-200); Creatinine,Serum 1.20 mg/dl (0.66-1.25); Estimated Glomerular Filt Rate 59 ml/min (>60); GFR (African American) 71 ML/MIN (>60); Globulin 2.8 g/dL (1.3-3.2); Glucose 107 mg/dl (74-100); HDL Cholesterol 44 mg/dl (40-60); Potassium 5.3 mmoL/L (3.5-5.1); Sodium 138 mmol/L (136-145); Total Protein,Serum 7.5 g/dl (6.3-8.2); Triglycerides 240 mg/dl (30-150)
[2025-07-17 21:18] LABS: Hemoglobin A1C 5.6 % (4.0-6.0)
[2025-07-17 21:23] LABS: Digoxin 0.90 ng/ml (0.2-2.00)
[2025-07-17 21:34] LABS: Free T4 (Free Thyroxine) 1.13 ng/dl (0.78-2.19)
[2025-07-17 21:46] LABS: Thyroid Stimulating Hormone 4.87 uIU/mL (0.465-4.68)
--- OUTSIDE RECORDS SUMMARY | 2025-07-18 10:58 | XMS_ITS | Clinical Summary ---
Author Organization [facility] Address [address] [place] [address] Care Team Providers Care Supply Aide Name Role Phone Hemant Francis MD Primary Care Provider [phone] Allergies No known active allergies Medications albuterol [...] 5 mg by mouth Daily. Active Saw [place], Serenoa repens, (SAW PALMETTO PO) Take 900 [...] Vaccine ( - 2023- season) 2025 [facility] Care Teams Supply Aide Relationship Specialty Start Date End Date Hemant Francis MD formerly [facility] [address] ATTN: [place] [address] PCP - General Emergency Medicine 08/06/20
== END 2025-07-17 23:59 | disposition home or self-care (01) ==
LOC: LAB.DROPOF 07-18 10:52
PROVIDERS: PCP Family Medicine; Visit Provider Family Medicine
DX: E11.69 Type 2 diabetes mellitus with other specified complication (principal); I10 Essential (primary) hypertension; R42 Dizziness and giddiness; I25.10 Atherosclerotic heart disease of native coronary artery without angina pectoris; E03.9 Hypothyroidism, unspecified; Z51.81 Encounter for therapeutic drug level monitoring
CPT/HCPCS: 80053; 80061; 80162; 82043; 82570; 83036; 84439; 84443; 85025